=== PATIENT | female | born 1965 | race Caucasian/White ===

== ENCOUNTER 2021-06-02 19:29 | Emergency (ER) | payer SELFPAY ==
[~2021-06-02] VITALS: Ht 177.8 cm; Wt 100.0 kg
[2021-06-02] MEDS ORDERED: HYDROCODONE/ACETAMINOPHEN 10/325MG TABLET PO ONE (20:15)
[2021-06-02] MEDS ORDERED: IBUPROFEN 600MG TABLET PO ONE (20:15)
[2021-06-02] MEDS ORDERED: IBUP-2029 MT (23:10)
[2021-06-02 23:30] VITALS: BP 135/78
== END 2021-06-02 23:32 | disposition home or self-care (01) ==
LOC: ER 19:29
DX: S52.122A Displaced fracture of head of left radius, initial encounter for closed fracture (principal); W18.30XA Fall on same level, unspecified, initial encounter; Y93.89 Activity, other specified; Y92.89 Other specified places as the place of occurrence of the external cause; Y99.8 Other external cause status
CPT/HCPCS: 73080; 73090; 73110; 73562; 99284